=== PATIENT | male | born 1955 | race Caucasian/White ===

== ENCOUNTER 2019-12-07 16:28 | Emergency (ER) | payer MEDICAID, OTHER ==
[~2019-12-07] VITALS: Ht 177.8 cm; Wt 124.7 kg
[2019-12-07 17:02] VITALS: BP 166/87
--- NOTE | 2019-12-07 18:53 | NUR ---
PT AMBULATED TO BED 12
--- NOTE | 2019-12-07 19:00 | NUR ---
64 y/o m presents to ER c/o wound to right inner ankle area x 7 years. Per pt it was bleeding alot today. No bleeding noted, small scab noted with darkened skin surrounding area. Pt denies any pain. Pain level 0/10. Allergies: NKA Med hx: prediabetic
--- NOTE | 2019-12-07 19:10 | NUR ---
RECIVED REPORT FROM TERRANCE CHIU. CONTINUATION OF CARE.
--- NOTE | 2019-12-07 19:46 | NUR ---
Transfer of care and report given to Tobi CHIU
[2019-12-07 20:40] VITALS: BP 158/88
--- NOTE | 2019-12-07 20:40 | NUR ---
Patient discharged with v/s stable. Written and verbal after care instructions given and explained. Patient verbalized understanding. Ambulatory with steady gait. All questions addressed prior to discharge. Advised to follow up with PMD.
== END 2019-12-07 20:40 | disposition home or self-care (01) ==
LOC: MED 16:28
DX: I83.92 Asymptomatic varicose veins of left lower extremity (principal); I89.0 Lymphedema, not elsewhere classified
CPT/HCPCS: 99281

== ENCOUNTER 2020-06-12 09:03 | Day surgery (SDC) | payer OTHER, SELFPAY ==
[~2020-06-12] VITALS: Ht 182.9 cm; Wt 120.2 kg
[2020-06-12] MEDS ORDERED: MIDAZOLAM 2 MG/2 ML VIAL ONE ×2 (09:39→09:40)
[2020-06-12] MEDS ORDERED: diphenhydrAMINE 50 MG/ML VIAL ONE (09:39)
[2020-06-12] MEDS ORDERED: fentaNYL citrate 0.05 MG/ML VIAL ONE (09:39)
[2020-06-12] MEDS ORDERED: MIDAZOLAM 2 MG/2 ML VIAL IVP SCH (12:00)
[2020-06-12] MEDS ORDERED: fentaNYL citrate 0.05 MG/ML VIAL IVP SCH (12:00)
== END 2020-06-12 12:20 | disposition home or self-care (01) ==
LOC: MDS 09:03 → MFCC 09:06 → MDS 12:20
PROVIDERS: ATTEND Surgery
DX: K62.5 Hemorrhage of anus and rectum (principal); K57.30 Diverticulosis of large intestine without perforation or abscess without bleeding; K63.5 Polyp of colon; K44.9 Diaphragmatic hernia without obstruction or gangrene; I10 Essential (primary) hypertension; Z98.890 Other specified postprocedural states; Z11.59 Encounter for screening for other viral diseases; Z86.010 Personal history of colon polyps
CPT/HCPCS: 45380; 88305; 93005; J2250; J3010; U0003; J1200

== ENCOUNTER 2022-12-28 20:44 | Inpatient (IN) | payer OTHER ==
[~2022-12-28] VITALS: Ht 182.9 cm; Wt 128.4 kg
[2022-12-28 20:46] VITALS: BP 174/81
--- NOTE | 2022-12-28 20:54 | NUR ---
pt to bed
--- NOTE | 2022-12-28 21:03 | NUR ---
PT IS HERE TO GET EVALUATION OF THE RIGHT CALF WOUND PAIN 12/03 WITH WARM TO TOUCH. PT WENT TO URGENT CARE AND DECIDIED TO COME HERE. WAITING FOR
--- NOTE | 2022-12-28 22:01 | NUR ---
ULTRASOUND IS AT THE BEDSIDE.
[2022-12-28] MEDS ORDERED: cefTRIAXone 1,000 MG VIAL ONE (22:07)
[2022-12-28 22:10] LABS: BASOPHILS % (AUTO) 0.2 % (0.0-2.0); EOSINOPHILS # (AUTO) 0.2 K/uL (0-0.4); HEMATOCRIT 40.4 % (36-52); LYMPHOCYTES # (AUTO) 1.4 K/uL (2.0-11.5); LYMPHOCYTES % (AUTO) 24.4 % (20.5-51.1); MEAN CORPUSCULAR HEMOGLOBIN 32 pg (27-31); MEAN CORPUSCULAR HGB CONC 35 g/dL (33-37); MEAN CORPUSCULAR VOLUME 91.4 fL (80-94); MONOCYTES # (AUTO) 0.7 K/uL (0.8-1.0); MONOCYTES % (AUTO) 13.1 % (1.7-9.3); NEUTROPHILS # (AUTO) 3.3 K/uL (1.8-7.7); NEUTROPHILS % (AUTO) 58.3 % (42.2-75.2); PLATELET COUNT (AUTO) 217 K/uL (140-450); RED BLOOD CELL COUNT(AUTO) 4.42 MIL/uL (4.20-6.10); RED CELL DISTRIBUTION WIDTH 12.7 % (11.6-13.7); WHITE BLOOD COUNT (AUTO) 5.6 K/uL (4.8-10.8)
[2022-12-28 22:18] LABS: ANION GAP 13.7 (8-16); CARBON DIOXIDE 26.8 mmol/L (21-32); CREATININE 1.1 mg/dL (0.6-1.3); POTASSIUM 3.5 mmol/L (3.5-5.1)
--- NOTE | 2022-12-28 22:54 | NUR ---
BELONGINGS LIST DONE.
[2022-12-28] MEDS ORDERED: TRAM50TA3 PO (23:01)
[2022-12-28] MEDS ORDERED: BACTO TP (23:01)
[2022-12-28] MEDS ORDERED: ACET-2619 PO (23:01)
[2022-12-28] MEDS ORDERED: VANCOMYCIN PER PHARMACY MC PRN (23:05)
[2022-12-28] MEDS ORDERED: ACETAMINOPHEN 325 MG TAB PO PRN (23:05)
[2022-12-28] MEDS ORDERED: POTASSIUM CHLORIDE 10 MEQ TABER PO PRN (23:05)
[2022-12-28] MEDS ORDERED: DOCUSATE SODIUM 100 MG GELCAP PO PRN (23:05)
[2022-12-28] MEDS ORDERED: MAG SULF 2000 MG/WATER PREMIX 50 ML IV PRN (23:05)
[2022-12-28] MEDS ORDERED: ZOLPIDEM 10 MG TAB PO PRN (23:05)
[2022-12-28] MEDS ORDERED: ONDANSETRON 4 MG/2 ML VIAL IVP PRN (23:05)
[2022-12-28] MEDS ORDERED: LORazepam 2 MG/ML VIAL IVP PRN (23:05)
--- NOTE | 2022-12-28 23:47 | NUR ---
APPLIED NEW DRESSING TO PATIENT RIGHT LOWER LEG WOUND.
[2022-12-29 00:09] VITALS: BP 150/88
--- NOTE | 2022-12-29 00:09 | NUR ---
RECEIVED PT. AAOX4 , FROM ER , AMBULATES TO BED , STEADY GAIT , IV SITE INTACT AND PATENT , PER PT THE PAIN ON HIS LEG IS BEARABLE AT THIS TIME AND ON AND OFF HE RATED THE PAIN 2 /10 . ADMISSION ASSESSMENT - WILL BE DONE , PT HAS STEADY GAIT , SECURE SAFETY AND FALL PREVENTION MEASURES , CALL LIGHT WITHIN REACH . PT HAS BILAT. EDEMA BOTH LEGS BUT NON PITTING AT THIS TIME . W/ R LOWER LEG WOUND - PER ER NURSE HE TOOK THE PHOTO OF THE WOUND , BUT NEEDS TO GO TO ICU TO PRINT IT - WILL ENDORSE , CALL LIGHT / URINAL WITHIN REACH . Addendum: 12/29/22 at 0753 by Althea Barragan RN PER ER NURSE HE TOOK THE PHOTO BUT HE HAVE TO GO TO ICU TO PRINT IT , BECAUSE THE PRINTER [id number] THE ER IS BROKEN - WILL ENDORSE . Addendum: 12/29/22 at 0810 by Althea Barragan RN PT REFUSED TO REMOVETHE ELASTIC BANDAGE - WILL WAIT THE PHOTO FROM ER
[2022-12-29] MEDS ORDERED: VANCOMYCIN 1GM/DEXT 5% PREMIX 200 ML IV SCH (00:30)
[2022-12-29] MEDS ORDERED: VANCOMYCIN 1,000 MG VIAL ONE (00:48)
--- NOTE | 2022-12-29 01:34 | NUR ---
Patient will be admitted to care of cellutitis. [facility] Will go to [facility] 108. Belongings list completed. Report to taylor.
--- NOTE | 2022-12-29 02:13 | NUR ---
C/O PAIN REFUSED MORPHINE , REQUESTING TRAMADOL; , BP 180/99 , NJ 63 , THERE IS RED SPOY ON LEFT EYE BUT DENIES HEADACHE , DIZZINESS - WILL REFER TO DR Colin LEWIS .
--- NOTE | 2022-12-29 03:39 | NUR ---
BP 166/ 92 - O2 SAT 97 5 - C/O PAIN - WILL MEDICATE.
--- NOTE | 2022-12-29 03:40 | NUR ---
STILL NO RESPONSE FROM DR. LEWIS - PT SAID OK I WILL TAKE MORPHINE TIV NOW FOR PAIN - HE SAID HE CAN'T WAIT HIS REQUESTED TRAMADOL - WILL INFORM DR. LEWIS
[2022-12-29] MEDS: MORPHINE SULFATE 2 MG/ML SYR IVP PRN ×2 (03:41→20:23)
[2022-12-29 04:00] VITALS: BP 155/85
--- NOTE | 2022-12-29 05:04 | NUR ---
INFORMED DR. LEWIS I DID NOT CARRY OUT THE TRAMADOL AND HYDRALAZINE SHE ORDERED BECAUSE IT IS TOO LATE THE PT'S CAN'T WAIT HER RESPONSE AND THE PT IS ALREADY GOT MORPHINE . - BP 141/ 90
--- NOTE | 2022-12-29 06:00 | NUR ---
SLEEPING BUT EASILY AROUSABLE BY SOUNDS , CALL LIGHT WITHIN REACH .
[2022-12-29 06:29] LABS: BASOPHILS % (AUTO) 0.3 % (0.0-2.0); EOSINOPHILS # (AUTO) 0.2 K/uL (0-0.4); EOSINOPHILS % (AUTO) 2.9 % (0.0-4.0); HEMATOCRIT 41.9 % (36-52); HEMOGLOBIN 14.4 g/dL (12.0-18.0); LYMPHOCYTES # (AUTO) 1.2 K/uL (2.0-11.5); LYMPHOCYTES % (AUTO) 19.1 % (20.5-51.1); MEAN CORPUSCULAR HEMOGLOBIN 32 pg (27-31); MEAN CORPUSCULAR HGB CONC 34 g/dL (33-37); MEAN CORPUSCULAR VOLUME 91.8 fL (80-94); MONOCYTES # (AUTO) 0.7 K/uL (0.8-1.0); MONOCYTES % (AUTO) 11.6 % (1.7-9.3); NEUTROPHILS # (AUTO) 4.1 K/uL (1.8-7.7); NEUTROPHILS % (AUTO) 66.1 % (42.2-75.2); PLATELET COUNT (AUTO) 221 K/uL (140-450); RED BLOOD CELL COUNT(AUTO) 4.56 MIL/uL (4.20-6.10); RED CELL DISTRIBUTION WIDTH 13.2 % (11.6-13.7); WHITE BLOOD COUNT (AUTO) 6.3 K/uL (4.8-10.8)
--- NOTE | 2022-12-29 07:45 | NUR ---
ASSUMED CONTINUITY OF CARE. INITIAL ASSESSMENT DONE. RLE ELEVATED WITH PILLOWS. KEEP COMFORTABLE ON BED. CALL LIGHT WITHIN REACH.
--- NOTE | 2022-12-29 07:48 | NUR ---
ENDORSED TO AM NURSE FOR CONT. OF CARE . INFORMED DR. LEWIS I DID NOT CARRY OUT HER HYDRALAZINE TIV ORDERED BEC. I REFERRED THE PT TO HER AT AROUND 2 AM BUT SHE REPLIED AT PAST 5 AM ON THE TIME I RE CHECKED THE BP AND THE BP IS 142/ 92 - DR. BERRIOS REPLIED BACK OK AND THANKS . ENDORSED TO APPLE HERNANDEZ ABOUT WHAT HAPPENED TO HYDRALAZINE
[2022-12-29 08:00] VITALS: BP 163/85
[2022-12-29 08:05] LABS: CARBON DIOXIDE 28.3 mmol/L (21-32); CREATININE 0.9 mg/dL (0.6-1.3); POTASSIUM 3.3 mmol/L (3.5-5.1)
[2022-12-29] MEDS ORDERED: lisinopriL 5 MG TAB PO SCH (09:25)
[2022-12-29] MEDS: VANCOMYCIN 1,500 MG in NACL 0.9% 500 ML IV SCH ×2 (09:26→20:09)
--- NOTE | 2022-12-29 09:54 | NUR ---
PATIENT HAS BEEN SCREENED AND CATEGORIZED MODERATE NUTRITION RISK. PATIENT WILL BE SEEN WITHIN 3-5 DAYS OF ADMISSION. REVIEWED BY DANNY GERONIMO RD
--- NOTE | 2022-12-29 10:19 | NUR ---
WOUND CARE NOTE: WOUND ASSESSMENT DONE ON THIS 67 Y/O PT, AAX4, ADMITTED WITH HISTORY OF PREDIABETES AND MORBID OBESITY, AND CHRONIC RIGHT LOWER EXTREMITY WOUND. PER PT. LAST TYRONE HE BEEN EVALUATED BY SPECIALIST, WHO PERFORMS SCLEROTHERAPY ON HIM. HE ALSO SAID HE FOLLOW WOUND DOCTOR AT [facility]. RIGHT LOWER EXTREMITY WOUND 1X5X0.3CM, WOUND BED 100% LIGHT YELLOW SLOUGH TISSUE, MODERATE AMOUNT PURULENT DISCHARGE, NO ODOR. SHARYN-WOUND SKIN SWELLING, WITH LIGHT PURPLE DISCOLORATION TO SHARYN WOUND SKIN AND EXTEND TO SHARYN-ANKLE. SHARYN-WOUND SKIN NO INDURATION, PAIN 0/10. PER PT. SHARYN-ANKLE PURPLE DISCOLORATION STARTED MORE THAN A YEAR AGO AND HE HAS SEEN A VASCULAR DOCTOR AND WAS TOLD IT IS A VENOUS PROBLEM. LLE, SKIN INTACT. POC DISCUSSED WITH DR. LEWIS . POC DISCUSSED WITH PT. WITH RECOMMENDATIONS. PT. VERBALIZES UNDERSTANDING. POC DISCUSSED WITH PRIMARY RN DAVID, WOUND PHOTO OBTAINED. RECOMMENDATIONS: -OBTAIN WOUND CX. -CLEANSE RLE WOUND WITH WOUND CARE SOLUTION, PAT DRY, APPLY ALGINATE DRESSING, COVER WITH DRY DRESSING 3X/WEEK ON MWF AND PRN IF SOILING -ELEVATE RLE WITH HEEL OFF
--- NOTE | 2022-12-29 10:27 | NUR ---
Patient's Plan of Care was discussed and reviewed with CANOE INSPECTOR:
[2022-12-29 12:00] VITALS: BP 166/71
--- NOTE | 2022-12-29 12:07 | NUR ---
PAGED DR. LEWIS REGARDING PT. BP 166/71. PAGED BACK AND GOT PRN ORDER FOR HIGH BP. INFORMED CHARGE NURSE AMANDA BERRIOS.
[2022-12-29] MEDS ORDERED: hydrALAZINE 20 MG/ML VIAL IVP PRN (12:10)
--- NOTE | 2022-12-29 12:21 | NUR ---
SCHEDULED MEDICATIONS DUE GIVEN. WILL CONTINUE TO MONITOR.
--- NOTE | 2022-12-29 14:22 | NUR ---
DC PLANNING ASSESSMENT COMPLETE PLEASE REFER TO ASSESSMENT FOR DETAILS PT REPORTS DC PLAN IS TO RETURN HOME PROVIDING HIS TRANSPORATION WHEN MEDICALLY STABLE. Addendum: 12/29/22 at 1422 by Denis BECK Amended: Links added.
[2022-12-29 16:00] VITALS: BP 143/71
--- NOTE | 2022-12-29 18:56 | NUR ---
DR. CHRISTIANSON CAME AND SEEN PT..
--- NOTE | 2022-12-29 19:05 | NUR ---
REPORT GIVEN TO MERON ONEAL IN STABLE CONDITION.
--- NOTE | 2022-12-29 19:10 | NUR ---
RECEIVED PATIENT LYING ON THE BED, PATIENT IS AWAKE, ALERT AND ORIENTED, NO SIGNS OF DISTRESS NOTED, DENIES PAIN AT THIS TIME. RLE WOUND HAS CDI DRESSING. CALL LIGHT WITHIN REACH.
[2022-12-29 20:00] VITALS: BP 138/78
--- NOTE | 2022-12-29 20:09 | NUR ---
SCHEDULED IV ANTIBIOTIC GIVEN ORDERED. ALL SAFETY MEASURES IN PLACE.
--- NOTE | 2022-12-29 20:23 | NUR ---
PATIENT C/O 9/10 PAIN ON RLE, PRN MORPHINE GIVEN ORDERED. BP 138/78. WILL CONTINUE TO MONITOR THE PATIENT. CALL LIGHT WITHIN REACH.
--- NOTE | 2022-12-29 20:39 | NUR ---
RECEIVED CALL FROM NUCLEAR MEDICINE, PATIENT TO HAVE NM BONE TRI PHASE DONE IN THE MORNING, NO NECESSARY PREPARATION NEEDED TO BE DONE TONIGHT PER NUCLEAR MEDICINE STAFF.
--- NOTE | 2022-12-29 23:43 | NUR ---
PATIENT SIGNED AMA FORM. STAFF EXPLAINED TO PATIENT THE NEED TO GO TO THE NEAREST HOSPITAL IF EVER HE NEEDS EMERGENCY TREATMENT. PATIENT LEFT THE FLOOR @0002. STAFF WALKED PATIENT TO THE FRONT LOBBY. DR. LEWIS WAS NOTIFIED AND MADE AWARE.
[2023-01-01] MEDS ORDERED: ALGINATE DRESSING MC SCH (13:00)
== END 2022-12-30 00:05 | disposition left against medical advice (07) | DRG 603 ==
LOC: MED 20:44 → MTU 23:03
PROVIDERS: ADMIT Family Medicine; ATTEND Family Medicine
DX: L03.115 Cellulitis of right lower limb (principal); E83.51 Hypocalcemia; R73.9 Hyperglycemia, unspecified; E87.6 Hypokalemia; E66.01 Morbid (severe) obesity due to excess calories; I87.2 Venous insufficiency (chronic) (peripheral); L98.499 Non-pressure chronic ulcer of skin of other sites with unspecified severity; D72.821 Monocytosis (symptomatic); R73.03 Prediabetes; Z20.822 Contact with and (suspected) exposure to COVID-19; D72.810 Lymphocytopenia; Z79.1 Long term (current) use of non-steroidal anti-inflammatories (NSAID); Z79.899 Other long term (current) drug therapy; Z68.38 Body mass index [BMI] 38.0-38.9, adult
CPT/HCPCS: 36415; 73590; 80048; 83735; 85025; 87040; 87070; 87075; 87081; 87205; 93971; 96365; 99285; J0360; J0696; J2270; J2405; J3370; J7030; Q0092